=== PATIENT | male | born 1990 | race Caucasian/White ===

== ENCOUNTER 2017-06-27 05:35 | Emergency (ER) | payer MEDICAID ==
[~2017-06-27] VITALS: Ht 170.2 cm; Wt 65.3 kg
[2017-06-27 07:30] LABS: BASOPHIL % 0.8 % (0-2); PLATELET COUNT 175 x10^3mcL (130-400)
[2017-06-27 07:37] LABS: CALCIUM 7.7 mg/dL (8.5-10.1); CHLORIDE SERUM 109 mmol/L (98-107); CREATININE SERUM 0.5 mg/dL (0.7-1.3); GFR1 > 60 mL/min; GLUCOSE SERUM 84 mg/dL (74-106); POTASSIUM SERUM 4.1 mmol/L (3.5-5.1); SODIUM SERUM 144 mmol/L (136-145)
[2017-06-27 07:40] LABS: ALBUMIN 3.4 g/dL (3.4-5.0); ALKALINE PHOSPHATASE 96 U/L (46-116); ALT/SGPT 182 U/L (16-63); AST/SGOT 240 U/L (15-37); BILIRUBIN TOTAL 0.4 mg/dL (0.20-1.00); CHOLESTEROL 178 mg/dL (<200); CHOLESTEROL/HDL RATIO 1.6; HDL CHOLESTEROL 112 mg/dL (40-60); TOTAL PROTEIN, SERUM 6.5 g/dL (6.4-8.2); TRIGLYCERIDES 46 mg/dL (<150)
[2017-06-27 07:51] LABS: T3 TOTAL 0.91 ng/mL
[2017-06-27 07:52] LABS: AMPHETAMINE QUAL UR NONE DETECTED (NEG <=1000)
[2017-06-27 07:52] LABS: FREE T4 0.78 ng/dL (0.76-1.46); T4(THYROXINE) 5.7 ug/dL (4.7-13.3)
[2017-06-27 09:13] VITALS: BP 120/70
== END 2017-06-27 09:13 | disposition home or self-care (01) ==
LOC: ED 05:35
PROVIDERS: Specialist
DX: F10.239 Alcohol dependence with withdrawal, unspecified (principal); F41.9 Anxiety disorder, unspecified
CPT/HCPCS: 83880; 84439; J1885; J2060; J3411; J3475; J3490; J7030; Q0092